=== PATIENT | female | born 2000 | race Caucasian/White ===

== ENCOUNTER 2020-11-07 18:07 | Emergency (ER) | payer SELFPAY ==
[~2020-11-07] VITALS: Ht 160 cm; Wt 124.7 kg
[~2020-11-07 18:07] MED LIST: BACTRIM DS TAB1 EACH
[2020-11-07] MEDS ORDERED: ULTRAM50 MG PO ×2 (19:18→19:20)
[2020-11-07] MEDS ORDERED: CLINDAMYCIN HC150 MG PO ×2 (19:18→19:20)
== END 2020-11-07 19:46 | disposition home or self-care (01) ==
LOC: FSED 19:05
DX: K08.89 Other specified disorders of teeth and supporting structures (principal); F32.A Depression, unspecified
CPT/HCPCS: 99282